=== PATIENT | female | born 2000 | race Caucasian/White ===

== ENCOUNTER 2018-04-17 20:00 | Emergency (ER) | payer SELFPAY ==
[~2018-04-17] VITALS: Ht 172.7 cm; Wt 89.8 kg
[2018-04-17 20:39] VITALS: Ht 172.7 cm; Wt 89.8 kg
[2018-04-17 21:48] VITALS: BP 126/67
== END 2018-04-17 21:48 | disposition home or self-care (01) ==
LOC: ED 20:00
DX: S09.8XXA Other specified injuries of head, initial encounter (principal); V49.49XA Driver injured in collision with other motor vehicles in traffic accident, initial encounter; Y93.I9 Activity, other involving external motion; Y92.413 State road as the place of occurrence of the external cause; Y99.8 Other external cause status